=== PATIENT | male | born 1965 | race Caucasian/White ===

== ENCOUNTER 2016-08-01 09:10 | Day surgery (SDC) | payer OTHER ==
[2016-07-31 13:06] VITALS: BMI 27.8
[~2016-08-01] VITALS: Ht 172.7 cm; Wt 84.4 kg
[2016-08-01] VITALS (10 sets, daily range): BP systolic 104–127; BP diastolic 62–76; PULSE 68–76; RESP 12–16; Ht 172.7 cm; Wt 84.4 kg
[~2016-08-01 09:10] MED LIST: ACET-820 PO; ATEN-51 PO; EPHEDrine SULFATE 50 MG/5 ML SYG ONE; LISI1TAB8 PO; OXYC10TA74 PO
[2016-08-01] MEDS ORDERED: FENTAnyl 50 MCG/ML VIAL ONE (12:18)
[2016-08-01] MEDS ORDERED: MIDAZOLAM 1 MG/ML 2 ML INJ ONE (12:18)
[2016-08-01] MEDS ORDERED: LIDOCAINE 1% (MPF) 30 ML INJ INJ ONE (12:25)
[2016-08-01] MEDS ORDERED: LIDOCAINE 1% (MPF) 30 ML INJ ONE (12:35)
[2016-08-01] MEDS ORDERED: PROPOFOL 20 ML ONE (12:42)
[2016-08-01] MEDS ORDERED: LIDOCAINE 2% (SDV) 5 ML INJ ONE (12:42)
[2016-08-01] MEDS ORDERED: ONDANSETRON 4 MG INJ ONE (12:42)
[2016-08-01] MEDS ORDERED: DEXAMETHASONE 4 MG/ML 1 ML INJ ONE (12:42)
[2016-08-01] MEDS ORDERED: FENTAnyl 50 MCG/ML VIAL IV PRN (13:00)
[2016-08-01] MEDS ORDERED: METOCLOPRAMIDE 10 MG INJ IV PRN (13:00)
[2016-08-01] MEDS ORDERED: MEPERIDINE 25 MG INJ IV PRN (13:00)
[2016-08-01] MEDS ORDERED: OXYCODONE/ACETAMINOPHEN (5/325) TAB PO PRN ×2 (13:00)
[2016-08-01] MEDS ORDERED: ONDANSETRON 4 MG INJ IV PRN (13:00)
[2016-08-01] MEDS ORDERED: PROCHLORPERAZINE 10 MG INJ IV PRN (13:00)
[2016-08-01] MEDS ORDERED: KETOROLAC 30 MG INJ IV ONE (13:00)
[2016-08-01] MEDS ORDERED: DIPHENHYDRAMINE 50 MG INJ IV PRN (13:00)
--- NOTE | 2016-08-03 00:11 | OPR ---
DATE OF OPERATION: 08/01/2016 PREOPERATIVE DIAGNOSIS: Retained K-wire right 4th metacarpal, status post ORIF of 4th metacarpal fr acture. POSTOPERATIVE DIAGNOSIS: Retained K-wire right 4th metacarpal, status post ORIF of 4th metacarpal f racture. SURGEON: West Lira MD OPERATION PERFORMED: Exploration and removal of K-wire with the aid of the image intensifier. DESCRIPTION OF PROCEDURE: With the patient supine on the operating room table, monitored anesthesia care was provided. The right upper extremity from below the tourniquet was prepared and draped in a sterile fashion. The Esmarch bandage was applied and the tourniquet inflated to 250 mmHg. A long itudinal incision was made over the 4th metacarpophalangeal joint. This was deepened. The extensor tendon was divided longitudinally. The K-wire was identified and extracted. The wound was irrigat ed with saline. Sutures of 3-0 Vicryl were used to repair the extensor tendon. Sutures of 5-0 Ethi shannon were used to approximate the skin. A sterile dressing was applied. The patient tolerated the p rocedure and left in satisfactory condition. Dictated By: WEST BERMUDEZ/NALLELY Conf#: [id number] DID#: [id number]
== END 2016-08-01 14:55 | disposition home or self-care (01) ==
LOC: SDS 09:10
PROVIDERS: ATTEND Orthopaedic Surgery Hand Surgery
DX: Z45.89 Encounter for adjustment and management of other implanted devices (principal); I10 Essential (primary) hypertension; Z86.73 Personal history of transient ischemic attack (TIA), and cerebral infarction without residual deficits
CPT/HCPCS: 20680; 88300; J1100; J1885; J2175; J2250; J2405; J3010

== ENCOUNTER 2017-09-11 07:18 | Day surgery (SDC) | END 2017-09-11 16:29 | disposition home or self-care (01) ==